=== PATIENT | male | born 1965 | race Caucasian/White ===

== ENCOUNTER 2019-01-24 10:55 | Outpatient (CLI) | payer BC, SELFPAY ==
--- NOTE | 2019-01-24 09:57 | DI.RAD_ITS ---
SYMPTOM/DIAGNOSIS: KNEE PAIN RIGHT KNEE: Two views. Comparison 03/28/05 There are again seen post surgical changes of prior anterior anterior cruciate ligament repair. There is marked narrowing of the medial femoral tibial joint space with subchondral sclerosis and flattening of the articular surfaces. There are osteophytes seen involving all three joint compartments. Chondrocalcinosis is present. No acute fracture or dislocation is seen. There is a joint effusion present. IMPRESSION: Severe osteoarthritis of the right knee.
== END 2019-01-24 11:15 ==
PROVIDERS: PCP Internal Medicine; Visit Provider Physician Assistant
DX: M25.561 Pain in right knee (principal); M17.11 Unilateral primary osteoarthritis, right knee
CPT/HCPCS: 73560

== ENCOUNTER 2020-03-23 08:26 | Outpatient (REF) | payer BC, SELFPAY ==
[2020-03-23 19:24] LABS: Absolute Basophil Count 0.03 10^3/uL (0.0-0.2); Absolute Eosinophil Count 0.18 10^3/uL (0.0-0.7); Absolute Lymphocyte Count 1.66 10^3/uL (1.2-3.4); Absolute Monocyte Count 0.61 10^3/uL (0.1-0.8); Absolute Neutrophil Count 3.41 10^3/uL (1.2-6.7); Basophils % 0.5; Eosinophils % 3.1; HCT 47.4 % (40.0-50.0); HGB 15.8 g/dL (13.5-17.5); Lymphocytes % 28.2; MCH 29.6 pg (27.0-33.0); MCHC 33.3 % (32.0-36.0); MCV 88.9 fL (80-95); MPV 10.6 fL (8.0-11.0); Monocytes % 10.4; Neutrophils % 57.8; Nucleated RBC 0 %; Platelet Count 218 10^3/uL (130-400); RBC 5.33 10^6/uL (4.36-5.78); RDW 12.5 % (11.8-14.1); RDW-SD 40.7 fL; WBC 5.89 10^3/uL (4.4-10.8)
[2020-03-23 19:34] LABS: ALT 43 U/L (16-63); AST 20 U/L (15-37); Albumin 4.2 g/dL (3.4-5.0); Alkaline Phosphatase 64 U/L (46-116); Anion Gap 2.9 mmol/L (3-11); BUN 22 mg/dL (7-18); CO2 35.1 mmol/L (21.0-32.0); CREATININE 1.27 mg/dL (0.70-1.30); Calcium 9.1 mg/dL (8.5-10.1); Calculated LDL 163 mg/dL (<100); Chloride 99 mmol/L (98-107); Cholesterol 265 mg/dL (<200); Glucose 106 mg/dL (74-106); HDL Cholesterol 36 mg/dL (40-60); Potassium 3.9 mmol/L (3.5-5.1); Sodium 137 mmol/L (136-145); Total Protein 7.7 g/dL (6.4-8.2); Triglyceride 331 mg/dL (<150)
[2020-03-23 19:46] LABS: Bilirubin, Total 0.5 mg/dL (0.2-1.0)
== END 2020-03-23 08:46 ==
LOC: NCHCN 08:26
PROVIDERS: PCP Internal Medicine; Visit Provider Physician Assistant
DX: M54.9 Dorsalgia, unspecified (principal); Z87.442 Personal history of urinary calculi; M17.9 Osteoarthritis of knee, unspecified; K21.9 Gastro-esophageal reflux disease without esophagitis; E78.5 Hyperlipidemia, unspecified
CPT/HCPCS: 80053; 80061; 85025